=== PATIENT | male | born 1985 | race American Indian/Alaskan Native ===

== ENCOUNTER 2021-07-16 11:37 | Emergency (ER) | payer OTHER ==
[2021-07-16 11:57] VITALS: BP 113/72
--- NOTE | 2021-07-16 12:49 | Emergency Department Report ---
ED Head Trauma HPI - General Chief complaint: Laceration/Recheck/Suture Stated complaint: HIT RT SIDE HEAD AT WORK Time Seen by Provider: 07/16/21 12:35 Source: patient Mode of arrival: Ambulatory Limitations: No Limitations - History of Present Illness Initial comments: Patient is 35 years old male with no significant past medical history. Patient presented to the ER for evaluation after a head injury that happened this morning at his work. Patient stated that he opened a door suddenly and the door hit him on the right side of his forehead. Patient presented with an abrasion. Patient denied any dizziness, headache, nausea or vomiting, focal weakness numbness or tingling sensation. No visual problem. Patient denied any other injuries. MD Complaint: head injury -: Sudden, This morning Location: face Loss of Consciousness: no Place: work Radiation: none Severity: mild Associated Symptoms: denies other symptoms - Related Data Allergies/Adverse reactions: Allergies Allergy/AdvReac Type Severity Reaction Status Date / Time No Known Allergies Allergy Unverified 07/16/21 11:57 ED Review of Systems ROS: Stated complaint: HIT RT SIDE HEAD AT WORK Other details as noted in HPI Comment: All other systems reviewed and negative Constitutional: denies: chills, fever Respiratory: denies: cough, shortness of breath, SOB with exertion, SOB at rest Cardiovascular: denies: chest pain, palpitations Gastrointestinal: denies: abdominal pain, nausea, diarrhea Musculoskeletal: denies: back pain Neurological: denies: headache, weakness, numbness, paresthesias, confusion, abnormal gait, vertigo ED Physical Exam - General Limitations: No Limitations General appearance: alert, in no apparent distress - Head Head exam: Present: other (Small abrasion, 0.5 cm just lateral to the right eyebrow. Bleeding controlled.) - Eye Eye exam: Present: normal appearance, PERRL - ENT ENT exam: Present: normal exam, normal orophraynx, mucous membranes moist - Neck Neck exam: Present: normal inspection, full ROM. Absent: tenderness, meningismus - Respiratory Respiratory exam: Present: normal lung sounds bilaterally - Cardiovascular Cardiovascular Exam: Present: regular rate, normal rhythm, normal heart sounds - GI/Abdominal GI/Abdominal exam: Present: soft. Absent: distended, tenderness, guarding, rebound - Extremities Exam Extremities exam: Present: normal inspection, full ROM, normal capillary refill. Absent: pedal edema, calf tenderness - Back Exam Back exam: Present: normal inspection, full ROM. Absent: CVA tenderness (R), CVA tenderness (L) - Neurological Exam Neurological exam: Present: alert, oriented X3, CN II-XII intact, normal gait, reflexes normal. Absent: motor sensory deficit - Psychiatric Psychiatric exam: Present: normal mood - Skin Skin exam: Present: warm, intact, normal color ED Course Vital Signs 07/16/21 11:55 Temperature 98.7 F Pulse Rate 76 Respiratory 16 Rate Blood Pressure 113/72 [Left] O2 Sat by Pulse 100 Oximetry - Medical Decision Making Patient is 35 years old male with no significant past medical history. Patient presented to the ER for evaluation after a head injury that happened this morning at his work. Patient stated that he opened a door suddenly and the door hit him on the right side of his forehead. Patient presented with an abrasion. Patient denied any dizziness, headache, nausea or vomiting, focal weakness numbness or tingling sensation. No visual problem. Patient denied any other injuries. Bleeding controlled. Vital signs stable. No symptoms or sign of increased intracranial pressure and patient declined CT head now and he stated that he will return back if he develop any new symptoms. Patient given a printout of head injury and advised to return to the ER if he develop any new symptoms. Critical care attestation.: If time is entered above; I have spent that time in minutes in the direct care of this critically ill patient, excluding procedure time. ED Disposition Clinical Impression: Minor head injury, Abrasion Disposition: 01 HOME / SELF CARE / HOMELESS Is pt being admited?: No Condition: Stable Instructions: Head Injury, Adult, [id number], Abrasion Referrals: PRIMARY CARE, [Primary Care Provider] - 3-5 Days
[2021-07-16] MEDS ORDERED: TETANUS,DIPH,PERTUSS(ACELL) VACCINE 0.5 ML SYRINGE IM ONE (12:57)
== END 2021-07-16 14:21 | disposition home or self-care (01) ==
LOC: ED 11:37
DX: S00.81XA Abrasion of other part of head, initial encounter (principal); W22.8XXA Striking against or struck by other objects, initial encounter; Y93.89 Activity, other specified; Y92.89 Other specified places as the place of occurrence of the external cause; Y99.0 Civilian activity done for income or pay
CPT/HCPCS: 90471; 90715; 99281